=== PATIENT | male | born 1955 ===

== ENCOUNTER → 2022-08-17 | Day surgery (SDC) | payer MEDICARE ==
[~2022-08-17] VITALS: Ht 177.8 cm; Wt 86.2 kg
[~2022-08-17] MED LIST: CARAFATE1 G1 PO; DULE1ARO INH; PROTONIX40 MG PO; VENT7GM INH; VERAPAMIL HYDR300 MG PO
[2022-08-17 06:30] VITALS: BP 137/80
[2022-08-17 07:43] VITALS: BP 101/66
[2022-08-17 07:58] VITALS: BP 115/76
[2022-08-17 08:08] VITALS: BP 124/85
== END | disposition home or self-care (01) ==
LOC: SDC 08-14 08:00
PROVIDERS: ATTEND Surgery
DX: Z12.11 Encounter for screening for malignant neoplasm of colon (principal); D12.3 Benign neoplasm of transverse colon; K29.50 Unspecified chronic gastritis without bleeding; K57.30 Diverticulosis of large intestine without perforation or abscess without bleeding; K25.9 Gastric ulcer, unspecified as acute or chronic, without hemorrhage or perforation; J45.909 Unspecified asthma, uncomplicated; G43.909 Migraine, unspecified, not intractable, without status migrainosus; K21.9 Gastro-esophageal reflux disease without esophagitis; Z88.0 Allergy status to penicillin; Z96.641 Presence of right artificial hip joint; Z88.1 Allergy status to other antibiotic agents; Z79.899 Other long term (current) drug therapy